=== PATIENT | female | born 1995 | race Caucasian/White ===

== ENCOUNTER 2018-01-21 20:10 | Inpatient (IN) | payer OTHER ==
[~2018-01-21] VITALS: Ht 170.2 cm; Wt 62.6 kg
[2018-01-21] MEDS ORDERED: PREN-546 PO (21:06)
[2018-01-21] MEDS ORDERED: ACET-2619 PO (21:06)
[2018-01-21] MEDS ORDERED: NALBUPHINE 10 MG/ML AMP ONE (21:17)
[2018-01-21] MEDS ORDERED: PROMETHAZINE 25 MG/ML VIAL ONE (21:18)
[2018-01-21] MEDS: LACTATED RINGERS 1,000 ML IV SCH (21:22)
[2018-01-21 22:51] LABS: BASOPHILS % (AUTO) 0.1 % (0.0-2.0); EOSINOPHILS # (AUTO) 0.1 K/uL (0-0.4); EOSINOPHILS % (AUTO) 0.9 % (0.0-4.0); HEMATOCRIT 32.3 % (36-48); HEMOGLOBIN 10.6 g/dL (12.0-16.0); LYMPHOCYTES # (AUTO) 1.5 K/uL (2.5-16.5); LYMPHOCYTES % (AUTO) 12.8 % (20.5-51.1); MEAN CORPUSCULAR HEMOGLOBIN 28 pg (27-31); MEAN CORPUSCULAR HGB CONC 33 g/dL (33-37); MONOCYTES # (AUTO) 0.7 K/uL (0.8-1.0); MONOCYTES % (AUTO) 6.3 % (1.7-9.3); NEUTROPHILS # (AUTO) 9.1 K/uL (1.8-7.7); NEUTROPHILS % (AUTO) 79.9 % (42.2-75.2); PLATELET COUNT (AUTO) 177 K/uL (140-450); RED CELL DISTRIBUTION WIDTH 14.1 % (11.6-13.7); WHITE BLOOD COUNT (AUTO) 11.3 K/uL (4.8-10.8)
[2018-01-21 22:52] LABS: APPEARANCE,URINE CLOUDY (CLEAR); BILIRUBIN,URINE NEGATIVE (NEGATIVE); BLOOD, URINE 2+ (NEGATIVE); COLOR,URINE YELLOW (YELLOW); LEUKOCYTE ESTERASE ,URINE 1+ (NEGATIVE); NITRITE, URINE POSITIVE (NEGATIVE); UGLUCOSE NEGATIVE (NEGATIVE)
[2018-01-21 23:09] LABS: ALBUMIN 2.3 g/dL (3.4-5.0); ANION GAP 12.6 (8-16); CARBON DIOXIDE 23.2 mmol/L (21-32); CREATININE 0.7 mg/dL (0.6-1.3); POTASSIUM 3.8 mmol/L (3.5-5.1); TOTAL BILIRUBIN 0.1 mg/dL (0.0-1.0)
[2018-01-21 23:12] LABS: RBC,URINE 0-5 (RARE) /HPF (0-5)
[2018-01-21 23:13] LABS: WBC,URINE TOO MANY TO COUNT /HPF (0-5)
[2018-01-21 23:57] VITALS: BP 115/48
[2018-01-22] MEDS ORDERED: GENTAMICIN 100 MG in NACL 0.9% 100 ML IV ONE ×2
[2018-01-22] MEDS ORDERED: ceFAZolin 1,000 MG VIAL ONE ×2 (00:34→17:25)
[2018-01-22] MEDS ORDERED: GENTAMICIN 80 MG/2 ML VIAL ONE (01:05)
[2018-01-22] MEDS ORDERED: NALBUPHINE 10 MG/ML AMP ONE ×2 (01:36→08:58)
[2018-01-22] MEDS ORDERED: PROMETHAZINE 25 MG/ML VIAL ONE ×2 (01:36→08:58)
[2018-01-22] MEDS: NALBUPHINE 10 MG/ML AMP IVP PRN ×3 (02:10→09:04)
[2018-01-22] MEDS: PROMETHAZINE 25 MG/ML VIAL IVP PRN ×3 (02:12→09:04)
[2018-01-22] MEDS: LACTATED RINGERS 1,000 ML IV SCH ×4 (03:37→22:45)
[2018-01-22] MEDS ORDERED: ceFAZolin 2,000 MG in NACL 0.9% 100 ML IV SCH (05:00)
[2018-01-22] MEDS ORDERED: NACL 0.9% IV SCH (05:00)
[2018-01-22] MEDS ORDERED: GENTAMICIN IV SCH (05:00)
[2018-01-22] MEDS ORDERED: GENTAMICIN 80 MG in NACL 0.9% 100 ML IV SCH (05:00)
--- NOTE | 2018-01-22 06:19 | NUR ---
PATIENT HAS BEEN SCREENED AND CATEGORIZED LOW NUTRITION RISK. PATIENT WILL BE SEEN WITHIN 7 DAYS OF ADMISSION. 01/27/18 CHUCHO BLACKMAN MS, RDN
[2018-01-22] MEDS: GENTAMICIN 70 MG in DEXTROSE 5% 100 ML IV SCH ×2 (10:10→18:18)
[2018-01-22] MEDS ORDERED: AMPICILLIN 2,000 MG VIAL ONE (13:42)
[2018-01-23] MEDS ORDERED: ceFAZolin 1,000 MG VIAL ONE (01:22)
[2018-01-23] MEDS: GENTAMICIN 70 MG in DEXTROSE 5% 100 ML IV SCH ×3 (02:58→19:30)
[2018-01-23] MEDS: LACTATED RINGERS 1,000 ML IV SCH ×3 (11:33→19:50)
[2018-01-24] MEDS ORDERED: ceFAZolin 1,000 MG VIAL ONE ×2 (01:17→17:46)
[2018-01-24] MEDS: LACTATED RINGERS 1,000 ML IV SCH (01:30)
[2018-01-24] MEDS: GENTAMICIN 70 MG in DEXTROSE 5% 100 ML IV SCH ×3 (03:30→19:50)
--- NOTE | 2018-01-27 13:19 | NUR ---
RETRO REVIEW FAXED TO [facility] [phone]
== END 2018-01-24 21:00 | disposition home or self-care (01) | DRG 566 ==
LOC: MFCC 20:10
PROVIDERS: ADMIT Obstetrics & Gynecology; ATTEND Obstetrics & Gynecology
DX: O23.42 Unspecified infection of urinary tract in pregnancy, second trimester (principal); B96.20 Unspecified Escherichia coli [E. coli] as the cause of diseases classified elsewhere; Z3A.24 24 weeks gestation of pregnancy; Z88.1 Allergy status to other antibiotic agents; Z88.0 Allergy status to penicillin
CPT/HCPCS: 36415; 76770; 76805; 80053; 80170; 81001; 85025; 87086; 87186; J0290; J0690; J1580; J2300; J2550; J7030; J7060; J7120; Q0092

== ENCOUNTER 2018-05-06 16:15 | Inpatient (IN) | payer OTHER ==
[~2018-05-06] VITALS: Ht 170.2 cm; Wt 68.0 kg
[~2018-05-06 16:15] MED LIST: FERR-252 PO; PREN-546 PO
[2018-05-06] MEDS ORDERED: METHYLERGONOVINE 0.2 MG/ML AMP IM PRN (16:35)
[2018-05-06] MEDS ORDERED: PROMETHAZINE 25 MG/ML VIAL IVP PRN (16:35)
[2018-05-06] MEDS ORDERED: CARBOPROST 250 MCG/ML AMP IM PRN (16:35)
[2018-05-06] MEDS ORDERED: NALBUPHINE 10 MG/ML AMP IVP PRN ×2 (16:35→20:05)
[2018-05-06] MEDS ORDERED: OXYTOCIN 20 UNITS in LACTATED RINGERS 1,000 ML IV SCH ×2 (16:40→20:01)
[2018-05-06] MEDS ORDERED: OXYTOCIN 10 UNITS/ML VIAL IM SCH (17:00)
[2018-05-06 17:22] LABS: BASOPHILS % (AUTO) 0.1 % (0.0-2.0); EOSINOPHILS % (AUTO) 0.2 % (0.0-4.0); HEMATOCRIT 31.7 % (36-48); LYMPHOCYTES # (AUTO) 1.5 K/uL (2.5-16.5); LYMPHOCYTES % (AUTO) 13.8 % (20.5-51.1); MEAN CORPUSCULAR HEMOGLOBIN 25 pg (27-31); MEAN CORPUSCULAR HGB CONC 32 g/dL (33-37); MEAN CORPUSCULAR VOLUME 78.1 fL (80-94); MONOCYTES # (AUTO) 0.4 K/uL (0.8-1.0); NEUTROPHILS # (AUTO) 9.1 K/uL (1.8-7.7); NEUTROPHILS % (AUTO) 81.9 % (42.2-75.2); PLATELET COUNT (AUTO) 157 K/uL (140-450); RED BLOOD CELL COUNT(AUTO) 4.06 MIL/uL (4.20-5.40); RED CELL DISTRIBUTION WIDTH 14.8 % (11.6-13.7); WHITE BLOOD COUNT (AUTO) 11.1 K/uL (4.8-10.8)
[2018-05-06 17:49] VITALS: BP 117/64
[2018-05-06] MEDS: LACTATED RINGERS 1,000 ML IV SCH (17:55)
[2018-05-06 18:07] LABS: APPEARANCE,URINE CLOUDY (CLEAR); BILIRUBIN,URINE NEGATIVE (NEGATIVE); BLOOD, URINE 1+ (NEGATIVE); COLOR,URINE YELLOW (YELLOW); LEUKOCYTE ESTERASE ,URINE 2+ (NEGATIVE); NITRITE, URINE POSITIVE (NEGATIVE); UGLUCOSE NEGATIVE (NEGATIVE)
[2018-05-06 18:17] LABS: RBC,URINE 0-5 (RARE) /HPF (0-5)
[2018-05-06 18:18] LABS: WBC,URINE 20-60 /HPF (0-5)
[2018-05-06] MEDS ORDERED: MISOPROSTOL 25 MCG TAB ONE (19:28)
[2018-05-06] MEDS ORDERED: MISOPROSTOL 25 MCG TAB VG SCH (20:00)
[2018-05-07 00:32] LABS: APPEARANCE,URINE HAZY (CLEAR); BILIRUBIN,URINE NEGATIVE (NEGATIVE); BLOOD, URINE TRACE-I (NEGATIVE); COLOR,URINE YELLOW (YELLOW); LEUKOCYTE ESTERASE ,URINE 2+ (NEGATIVE); NITRITE, URINE POSITIVE (NEGATIVE); UGLUCOSE NEGATIVE (NEGATIVE)
[2018-05-07 00:44] LABS: RBC,URINE 3-10 (FEW) /HPF (0-5); WBC,URINE 80-100 /HPF (0-5)
[2018-05-07] MEDS: LACTATED RINGERS 1,000 ML IV SCH ×3 (01:50→07:38)
[2018-05-07] MEDS ORDERED: CLINDAMYCIN 900 MG/6 ML VIAL IV ONE (01:53)
[2018-05-07] MEDS ORDERED: NALBUPHINE 10 MG/ML AMP ONE (02:38)
[2018-05-07] MEDS ORDERED: PROMETHAZINE 25 MG/ML VIAL ONE (02:38)
[2018-05-07] MEDS ORDERED: CLINDAMYCIN 900 MG in DEXTROSE 5% 100 ML IV SCH ×5 (03:00→13:00)
[2018-05-07] MEDS ORDERED: BUPIVACAINE 0.125%/NS PREMIX 250 ML ONE (04:49)
[2018-05-07] MEDS ORDERED: OXYTOCIN 20 UNITS/LR PREMIX 1,000 ML IV ONE (06:14)
--- NOTE | 2018-05-07 07:52 | NUR ---
PATIENT HAS BEEN SCREENED AND CATEGORIZED LOW NUTRITION RISK. PATIENT WILL BE SEEN WITHIN 7 DAYS OF ADMISSION. 05/13/18 CHUCHO BLACKMAN MS, RDN
[2018-05-07] MEDS ORDERED: LIDOCAINE 1% 50 ML ONE (08:04)
[2018-05-07] MEDS ORDERED: OXYTOCIN 10 UNITS/ML VIAL ONE (08:04)
[2018-05-07] MEDS ORDERED: DEXTROSE 10% 1,000 ML IV SCH (15:30)
[2018-05-07] MEDS ORDERED: MEASLES, MUMPS, AND RUBELLA 1 VIAL SQVAC PRN (16:00)
[2018-05-07] MEDS: ACETAMINOPHEN 325 MG TAB PO PRN (21:33)
[2018-05-08] MEDS: IBUPROFEN 600 MG TAB PO PRN ×2 (01:05→14:58)
[2018-05-08] MEDS ORDERED: INFLUENZA VIRUS VACCINE QUAD 0.5 ML SYR IMVAC PRN (02:00)
[2018-05-08] MEDS: ACETAMINOPHEN 325 MG TAB PO PRN ×2 (06:25→22:17)
[2018-05-08 08:30] LABS: BASOPHILS % (AUTO) 0.2 % (0.0-2.0); EOSINOPHILS % (AUTO) 0.4 % (0.0-4.0); HEMATOCRIT 30.3 % (36-48); HEMOGLOBIN 9.5 g/dL (12.0-16.0); LYMPHOCYTES # (AUTO) 1.8 K/uL (2.5-16.5); LYMPHOCYTES % (AUTO) 16.1 % (20.5-51.1); MEAN CORPUSCULAR HEMOGLOBIN 25 pg (27-31); MEAN CORPUSCULAR HGB CONC 31 g/dL (33-37); MEAN CORPUSCULAR VOLUME 78.8 fL (80-94); MONOCYTES # (AUTO) 0.7 K/uL (0.8-1.0); MONOCYTES % (AUTO) 6.2 % (1.7-9.3); NEUTROPHILS # (AUTO) 8.7 K/uL (1.8-7.7); NEUTROPHILS % (AUTO) 77.1 % (42.2-75.2); PLATELET COUNT (AUTO) 135 K/uL (140-450); RED BLOOD CELL COUNT(AUTO) 3.85 MIL/uL (4.20-5.40); RED CELL DISTRIBUTION WIDTH 15.2 % (11.6-13.7); WHITE BLOOD COUNT (AUTO) 11.3 K/uL (4.8-10.8)
[2018-05-09] MEDS: IBUPROFEN 600 MG TAB PO PRN (03:00)
--- NOTE | 2018-05-09 13:23 | NUR ---
Discharge Door Operator Note: I received an MD's order: Hx of depression taking medication before. Per patient's nurse Shayna Gavin, patient has not displayed any concerning behaviors. RN Shayna Gavin stated patient reported she is doing well and does not need any assistance from older adult social work specialist.
== END 2018-05-09 14:45 | disposition home or self-care (01) | DRG 560 ==
LOC: MLD 16:15 → MFCC 05-07 19:29
PROVIDERS: ADMIT Obstetrics & Gynecology; ATTEND Obstetrics & Gynecology
PROC: 10E0XZZ Delivery of Products of Conception, External Approach (ICD-10-PCS; principal; 2018-05-07)
PROC: 10907ZC Drainage of Amniotic Fluid, Therapeutic from Products of Conception, Via Natural or Artificial Opening (ICD-10-PCS; 2018-05-07)
PROC: 3E0P7VZ Introduction of Hormone into Female Reproductive, Via Natural or Artificial Opening (ICD-10-PCS; 2018-05-07)
PROC: 00HU33Z Insertion of Infusion Device into Spinal Canal, Percutaneous Approach (ICD-10-PCS; 2018-05-07)
PROC: 3E0R3BZ Introduction of Anesthetic Agent into Spinal Canal, Percutaneous Approach (ICD-10-PCS; 2018-05-07)
PROC: 3E02340 Introduction of Influenza Vaccine into Muscle, Percutaneous Approach (ICD-10-PCS; 2018-05-08)
PROC: 3E0234Z Introduction of Serum, Toxoid and Vaccine into Muscle, Percutaneous Approach (ICD-10-PCS; 2018-05-08)
DX: O99.02 Anemia complicating childbirth (principal); D64.9 Anemia, unspecified; O69.81X0 Labor and delivery complicated by cord around neck, without compression, not applicable or unspecified; Z23 Encounter for immunization; Z37.0 Single live birth; Z3A.39 39 weeks gestation of pregnancy
CPT/HCPCS: 36415; 51702; 59200; 59409; 76815; 81001; 85025; 86592; 86870; 86886; 86900; 86901; 87086; 87186; 90658; 90715; C1758; J2001; J2300; J2550; J2590; J3490; J7060; J7120; Q0092